=== PATIENT | male | born 1985 | race Two or more races ===

== ENCOUNTER 2020-02-29 04:09 | Emergency (ER) | payer SELFPAY ==
[~2020-02-29] VITALS: Ht 165.1 cm; Wt 72.7 kg
[2020-02-29 04:12] VITALS: BP 140/88
--- NOTE | 2020-02-29 04:19 | NUR ---
PT DENIES ANY PAIN. HE REPORTS 0/10. DENIES HEAD INJURY. PT CLEARED BY DR. LOPEZ
== END 2020-02-29 04:33 ==
LOC: ER 04:10
DX: F10.129 Alcohol abuse with intoxication, unspecified (principal); Y90.9 Presence of alcohol in blood, level not specified
CPT/HCPCS: 99283

== ENCOUNTER 2023-07-19 22:19 | Emergency (ER) | payer SELFPAY ==
[~2023-07-19] VITALS: Ht 165.1 cm; Wt 85.5 kg
[2023-07-19] MEDS ORDERED: ibuprofen tablet 400 MG TABLET PO ONE (22:40)
[2023-07-20 00:40] VITALS: BP 126/79; PULSE 106; RESP 14; TEMP 98; O2SAT 98
== END 2023-07-20 00:43 | disposition home or self-care (01) ==
LOC: ER 22:20
DX: S00.81XA Abrasion of other part of head, initial encounter (principal); R78.0 Finding of alcohol in blood; M25.511 Pain in right shoulder; M25.561 Pain in right knee; V89.2XXA Person injured in unspecified motor-vehicle accident, traffic, initial encounter; Y93.89 Activity, other specified; Y92.89 Other specified places as the place of occurrence of the external cause; Y99.8 Other external cause status
CPT/HCPCS: 70450; 70486; 73030; 73130; 73564; 99284